=== PATIENT | male | born 1985 | race African-American/Black ===

== ENCOUNTER 2018-08-29 11:19 | Emergency (ER) | payer MEDICARE, OTHER ==
[~2018-08-29] VITALS: Ht 185.4 cm; Wt 120.2 kg
[2018-08-29 11:21] VITALS: BP 115/75
--- NOTE | 2018-08-29 11:36 | Emergency Room Report ---
History of Present Illness General Chief Complaint: Vertigo Source: Patient Present Illness HPI Patient presents with reports of dizziness Reports that he has had this off-and-on for several years Has had fairly extensive workup reports history of hypertension and diabetes patient also takes Abilify Denies any chest pain or shortness of breath denies any lightheadedness Reports that his blood glucose has been appropriate Allergies: Coded Allergies: No Known Allergies (Unverified , 08/29/18) Patient History Past Medical History: see triage record Pertinent Family History: none Reviewed Nursing Documentation: PMH: Agreed; PSxH: Agreed Nursing Documentation-PMH Past Medical History: No History, Except For Hx Hypertension: Yes Hx Asthma: Yes Hx Diabetes: Yes Review of Systems All Other Systems: negative except mentioned in HPI Physical Exam Vital Signs Date Time Temp Pulse Resp B/P (MAP) Pulse Ox O2 Delivery O2 Flow Rate FiO2 08/29/18 11:14 99.0 80 20 130/88 100 Room Air Sp02 EP Interpretation: reviewed, normal General Appearance: well appearing, no apparent distress Head: normocephalic, atraumatic Eyes: bilateral eye PERRL, bilateral eye EOMI ENT: hearing grossly normal, normal pharynx, TMs + canals normal, uvula midline Neck: full range of motion, supple, no meningismus, no bony tend Respiratory: lungs clear, normal breath sounds, no rhonchi, no respiratory distress, no retraction, no accessory muscle use Cardiovascular #1: normal peripheral pulses, regular rate, rhythm, no edema, no gallop, no JVD, no murmur Gastrointestinal: normal bowel sounds, non tender, soft, no mass, no organomegaly, non-distended, no guarding, no hernia, no pulsatile mass, no rebound Genitourinary: no CVA tenderness Musculoskeletal: normal inspection Neurologic: oriented x3, responsive, supervisor coke handling III-XII nml as tested, motor strength/ tone normal, sensory intact Psychiatric: normal inspection, mood/affect normal Skin: normal color, no rash, warm/dry, palpation normal Lymphatic: normal inspection, no adenopathy Medical Decision Making Diagnostic Impression: Primary Impression: Vertigo ER Course Given the patient's history of taking Abilify questioning regarding suicidal or homicidal thoughts were made and patient denies any such thoughts Patient is hemodynamically stable here Accu-Chek was appropriate Patient presents with acute exacerbation of a chronic pathology At this time was able to ambulate without any obvious focal deficit Provided outpatient follow-up and stable for conservative outpatient discharge Last Vital Signs Date Time Temp Pulse Resp B/P (MAP) Pulse Ox O2 Delivery O2 Flow Rate FiO2 08/29/18 11:21 99.0 88 20 115/75 96 Room Air Status: improved Disposition: HOME, SELF-CARE Condition: Stable Patient Instructions: Vertigo Additional Instructions: Patient is provided with the discharge instructions notified to follow up with primary doctor in the next 2-3 days otherwise return to the er with any worsening symptoms. Please note that this report is being documented using [employer] technology. This can lead to erroneous entry secondary to incorrect interpretation by the dictating instrument. Janis Boles DO Aug 29, 2018 11:36
[2018-08-29 11:38] VITALS: BP 115/75
[2018-08-29] MEDS ORDERED: TYLENOL EXTRA500 MG ORAL (17:33)
[2018-08-30] MEDS ORDERED: ABILIFY10 MG ORAL (06:35)
[2018-08-30] MEDS ORDERED: METFORMIN HCL500 M1 ORAL (06:35)
== END 2018-08-29 11:38 | disposition home or self-care (01) ==
LOC: EDBD 11:19 → EMR 11:25
DX: R42 Dizziness and giddiness (principal); I10 Essential (primary) hypertension; J45.909 Unspecified asthma, uncomplicated; E11.9 Type 2 diabetes mellitus without complications
CPT/HCPCS: 99283

== ENCOUNTER 2018-08-29 17:02 | Emergency (ER) | payer MEDICARE, OTHER ==
[~2018-08-29] VITALS: Ht 185.4 cm; Wt 117.9 kg
[2018-08-29 17:08] VITALS: BP 100/60
--- NOTE | 2018-08-29 17:16 | Emergency Room Report ---
History of Present Illness General Chief Complaint: Headache Source: Patient Present Illness HPI 33 YO Male presents to the ED c/o headache x 5-6 out of severity in pain located frontally x 3 hours. denies sudden onset, denies N/V/F/C. Denies AMS, LOC, dizziness or hx of migraines. Denies paresthesias, or weakness. Denies photophobia, neck pain, or stiffness. Allergies: Coded Allergies: No Known Allergies (Unverified , 08/29/18) Patient History Past Medical History: DM, HTN, psych hx - bipolar Past Surgical History: none Pertinent Family History: none Reviewed Nursing Documentation: PMH: Agreed; PSxH: Agreed Nursing Documentation-PMH Past Medical History: No History, Except For Hx Hypertension: Yes Hx Asthma: Yes Hx Diabetes: Yes History Of Psychiatric Problem: Yes - Bipolar Review of Systems All Other Systems: negative except mentioned in HPI Physical Exam Vital Signs Date Time Temp Pulse Resp B/P (MAP) Pulse Ox O2 Delivery O2 Flow Rate FiO2 08/29/18 17:05 98.1 106 20 100/60 93 Room Air Sp02 EP Interpretation: reviewed, normal General Appearance: well appearing, no apparent distress, alert, GCS 15, non- toxic Head: normocephalic, atraumatic Eyes: bilateral eye normal inspection, bilateral eye PERRL ENT: hearing grossly normal, normal voice Neck: full range of motion Respiratory: lungs clear, normal breath sounds, speaking full sentences Cardiovascular #1: regular rate, rhythm Musculoskeletal: back normal, gait/station normal, normal range of motion, non- tender Neurologic: alert, oriented x3, responsive, motor strength/tone normal, sensory intact, normal gait - has a walker but seen at times carying the walker , speech normal, grossly normal Psychiatric: judgement/insight normal Skin: normal color, no rash, warm/dry, well hydrated Medical Decision Making PA Attestation Dr. Ross is my supervising Physician whom patient management has been discussed with. Diagnostic Impression: Primary Impression: Headache Qualified Codes: R51 - Headache ER Course 33 YO Male presents to the ED c/o headache x 5-6 out of severity in pain located frontally x 3 hours. denies sudden onset, denies N/V/F/C. Denies AMS, LOC, dizziness or hx of migraines. Denies paresthesias, or weakness. Denies photophobia, neck pain, or stiffness. Ddx considered but are not limited to migraine, SAH, Pseudomotor Cerebri,, Mass lesion, Cluster CONNOLLY, Tension CONNOLLY, Post lumbar puncture CONNOLLY. Vital signs: are WNL, pt. is afebrile H&PE are most consistent with headache -No focal neurological deficits. ORDERS: - none required at this time, dx is clinical. ED INTERVENTIONS: - Tylenol PO DISCHARGE: At this time pt. is stable for d/c to home. Will provide printed patient care instructions, and any necessary prescriptions. Care plan and follow up instructions have been discussed with the patient prior to discharge. Last Vital Signs Date Time Temp Pulse Resp B/P (MAP) Pulse Ox O2 Delivery O2 Flow Rate FiO2 08/29/18 17:05 98.1 106 20 100/60 93 Room Air Disposition: HOME, SELF-CARE Condition: Stable Scripts Acetaminophen* (TYLENOL EXTRA STRENGTH*) 500 Mg Tablet 500 MG ORAL Q6H, #15 TAB 0 Refills Prov: Amarilis Kuo 08/29/18 Patient Instructions: Medical Screening Exam Additional Instructions: Take medications as directed. Follow up with a Primary Care Provider in 3-5 days, even if your symptoms have resolved. --Please review list of primary care clinics, if you do not already have a primary care provider Return sooner to ED if new symptoms occur, or current symptoms become worse. - Please note that this Emergency Department Report was dictated using [employer] technology software, occasionally this can lead to erroneous entry secondary to interpretation by the dictation equipment. Amarilis Kuo Aug 29, 2018 17:16
[2018-08-29] MEDS ORDERED: TYLENOL EXTRA500 MG ORAL (17:33)
[2018-08-30] MEDS ORDERED: METFORMIN HCL500 M1 ORAL (06:35)
[2018-08-30] MEDS ORDERED: ABILIFY10 MG ORAL (06:35)
== END 2018-08-29 17:55 | disposition home or self-care (01) ==
LOC: EMR 17:51
DX: R51 Headache (principal); I10 Essential (primary) hypertension; E11.9 Type 2 diabetes mellitus without complications; J45.909 Unspecified asthma, uncomplicated; F31.9 Bipolar disorder, unspecified
CPT/HCPCS: 99283

== ENCOUNTER 2018-08-30 06:24 | Emergency (ER) | payer MEDICARE, OTHER ==
[~2018-08-30] VITALS: Ht 185.4 cm; Wt 119.3 kg
[~2018-08-30 06:24] MED LIST: TYLENOL EXTRA500 MG ORAL
[2018-08-30] MEDS ORDERED: METFORMIN HCL500 M1 ORAL (06:35)
[2018-08-30] MEDS ORDERED: ABILIFY10 MG ORAL (06:35)
--- NOTE | 2018-08-30 06:49 | Emergency Room Report ---
History of Present Illness General Chief Complaint: Behavioral Complaint Source: Patient, EMS Present Illness HPI Patient was seen twice yesterday. Once for for vertigo and the second time for headache. He states that both are better at this time. His main complaint right now is hearing voices telling him to harm himself. He has no plan. He does take Abilify at 10 mg. He's been taking that and says it is not working. He was at a long term facility but left. He denies doing drugs. He does smoke cigarettes. He has taken Trazodone, Risperdal in the past without help. The patient is diabetic. He is on metformin and says that his sugars are well- controlled. Patient denies fevers, chills, nausea, vomiting, diarrhea, dysuria, skin rashes , joint pain, back pain, chest pain, abdominal pain. H/O asthma, no wheezing. Allergies: Coded Allergies: No Known Allergies (Unverified , 08/29/18) Patient History Past Medical History: see triage record Social History: Reports: smoking; Denies: alcohol use, drug use Social History Narrative homeless Reviewed Nursing Documentation: PMH: Agreed; PSxH: Agreed Nursing Documentation-PMH Hx Hypertension: Yes Hx Asthma: Yes Hx Diabetes: Yes History Of Psychiatric Problem: Yes - bipolar Review of Systems All Other Systems: negative except mentioned in HPI Physical Exam Vital Signs Date Time Temp Pulse Resp B/P (MAP) Pulse Ox O2 Delivery O2 Flow Rate FiO2 08/30/18 06:29 98.4 102 18 118/84 100 Room Air Sp02 EP Interpretation: reviewed, normal General Appearance: well appearing, no apparent distress, GCS 15 Head: normocephalic Eyes: bilateral eye normal inspection, bilateral eye PERRL ENT: moist mucus membranes Neck: supple Respiratory: lungs clear, normal breath sounds Cardiovascular #1: regular rate, rhythm Cardiovascular #2: 2+ radial (R) Gastrointestinal: normal inspection, normal bowel sounds, non tender, no mass, non-distended Musculoskeletal: back normal, gait/station normal, normal range of motion Neurologic: alert, oriented x3, grossly normal Psychiatric: depressed affect - flat Suicide Risk Assessment: Suicidal Ideation: Yes Had intent to initiate attempt: No Pt's plan for suicide attempt: No Has means to complete attempt: No Skin: normal inspection, warm/dry Medical Decision Making Diagnostic Impression: Primary Impression: Suicidal ideation Additional Impressions: Schizoaffective disorder Qualified Codes: F25.1 - Schizoaffective disorder, depressive type H/O diabetes mellitus ER Course Patient presents with suicidal ideation. There is no plan. Differential includes ineffective medical treatment, electrolyte abnormality, exacerbation of underlying condition, other toxic ingestions amongst others. The patient will be evaluated with labs. The patient will be given his usual dose of Abilify. As the patient has suicidal ideation without plan we will reevaluate and he may need psychiatric evaluation. Labs with normal CBC, CMP, neg tox. I discussed possibly adding low dose Seroquel. He is considering this. Patient improved with treatment. States does not want to wait for psychiatric evaluation. Denies SI at this time. Patient left ED without notifying staff. Laboratory Tests Test 08/30/18 07:10 08/30/18 07:11 White Blood Count 8.6 K/UL (4.8-10.8) Red Blood Count 5.65 M/UL (4.70-6.10) Hemoglobin 16.6 G/DL (14.2-18.0) Hematocrit 48.1 % (42.0-52.0) Mean Corpuscular Volume 85 FL (80-99) Mean Corpuscular Hemoglobin 29.4 PG (27.0-31.0) Mean Corpuscular Hemoglobin Concent 34.5 G/DL (32.0-36.0) Red Cell Distribution Width 10.4 % (11.6-14.8) L Platelet Count 211 K/UL (150-450) Mean Platelet Volume 10.3 FL (6.5-10.1) H Neutrophils (%) (Auto) 67.0 % (45.0-75.0) Lymphocytes (%) (Auto) 25.2 % (20.0-45.0) Monocytes (%) (Auto) 6.1 % (1.0-10.0) Eosinophils (%) (Auto) 1.2 % (0.0-3.0) Basophils (%) (Auto) 0.5 % (0.0-2.0) Sodium Level 139 MMOL/L (136-145) Potassium Level 3.5 MMOL/L (3.5-5.1) Chloride Level 102 MMOL/L (98-107) Carbon Dioxide Level 29 MMOL/L (21-32) Anion Gap 9 mmol/L (5-15) Blood Urea Nitrogen 13 mg/dL (7-18) Creatinine 1.1 MG/DL (0.55-1.30) Estimate Glomerular Filtration Rate > 60 mL/min (>60) Glucose Level 87 MG/DL (74-106) Calcium Level 10.1 MG/DL (8.5-10.1) Total Bilirubin 0.5 MG/DL (0.2-1.0) Aspartate Amino Transferase (AST) 24 U/L (15-37) Alanine Aminotransferase (ALT) 37 U/L (12-78) Alkaline Phosphatase 85 U/L (46-116) Total Protein 10.2 G/DL (6.4-8.2) H Albumin 4.4 G/DL (3.4-5.0) Globulin 5.8 g/dL Albumin/Globulin Ratio 0.8 (1.0-2.7) L Salicylates Level 2.9 ug/mL (2.8-20) Acetaminophen Level < 2 MCG/ML (10-30) L Serum Alcohol < 3 mg/dL Urine Opiates Screen Negative (NEGATIVE) Urine Barbiturates Screen Negative (NEGATIVE) Phencyclidine (PCP) Screen Negative (NEGATIVE) Urine Amphetamines Screen Negative (NEGATIVE) Urine Benzodiazepines Screen Negative (NEGATIVE) Urine Cocaine Screen Negative (NEGATIVE) Urine Marijuana (THC) Screen Negative (NEGATIVE) Last Vital Signs Date Time Temp Pulse Resp B/P (MAP) Pulse Ox O2 Delivery O2 Flow Rate FiO2 08/30/18 13:00 98.4 78 16 118/84 100 Room Air Status: improved Disposition: ELOPED Condition: Improved Adi Villalobos MD Aug 30, 2018 06:49
[2018-08-30 07:15] VITALS: BP 118/84
[2018-08-30 07:21] LABS: BASOPHILS % (AUTO) 0.5 % (0.0-2.0); EOSINOPHILS % (AUTO) 1.2 % (0.0-3.0); HEMATOCRIT 48.1 % (42.0-52.0); HEMOGLOBIN 16.6 G/DL (14.2-18.0); LYMPHOCYTES % (AUTO) 25.2 % (20.0-45.0); MEAN CORPUSCULAR VOLUME 85 FL (80-99); MONOCYTES % (AUTO) 6.1 % (1.0-10.0); PLATELET COUNT 211 K/UL (150-450); RED BLOOD COUNT 5.65 M/UL (4.70-6.10); RED CELL DISTRIBUTION WIDTH 10.4 % (11.6-14.8); WHITE BLOOD COUNT 8.6 K/UL (4.8-10.8)
[2018-08-30 07:34] LABS: ANION GAP 9 mmol/L (5-15); BLOOD UREA NITROGEN 13 mg/dL (7-18); CALCIUM 10.1 MG/DL (8.5-10.1); CARBON DIOXIDE 29 MMOL/L (21-32); CHLORIDE 102 MMOL/L (98-107); CREATININE 1.1 MG/DL (0.55-1.30); POTASSIUM 3.5 MMOL/L (3.5-5.1); SODIUM 139 MMOL/L (136-145)
[2018-08-30 07:39] LABS: ALANINE AMINOTRANSFERASE 37 U/L (12-78); ALBUMIN 4.4 G/DL (3.4-5.0); ALBUMIN/GLOBULIN RATIO 0.8 (1.0-2.7); ALKALINE PHOSPHATASE 85 U/L (46-116); ASPARTATE AMINO TRANSFERASE 24 U/L (15-37); BILIRUBIN,TOTAL 0.5 MG/DL (0.2-1.0)
[2018-08-30 13:00] VITALS: BP 118/84
== END 2018-08-30 13:00 | disposition left against medical advice (07) ==
LOC: EDBD 06:24 → EDUNIT# 06:24 → EMR 07:05
DX: F25.1 Schizoaffective disorder, depressive type (principal); R45.851 Suicidal ideations; R44.0 Auditory hallucinations; F31.9 Bipolar disorder, unspecified; E11.9 Type 2 diabetes mellitus without complications; I10 Essential (primary) hypertension; F17.210 Nicotine dependence, cigarettes, uncomplicated; Z79.84 Long term (current) use of oral hypoglycemic drugs
CPT/HCPCS: 36415; 80053; 80307; 85025; 99284; G0480; 80329